=== PATIENT | male | born 1965 | race Caucasian/White ===

== ENCOUNTER 2017-03-03 14:45 | Emergency (ER) | payer OTHER ==
[2017-03-03 15:36] LABS: HEMOGLOBIN 15.6 gm/dl (14.0-17.5); RED BLOOD COUNT 5.4 M/UL (4.20-5.50); WHITE BLOOD COUNT 10.1 K/UL (4.5-11.0)
[2017-03-03 16:00] LABS: BUN/CREATININE RATIO 16 (0-10)
== END 2017-03-03 17:20 | disposition home or self-care (01) ==
LOC: ER1 14:45
PROVIDERS: Emergency Medicine
DX: R55 Syncope and collapse (principal)
CPT/HCPCS: 36415; 71010; 80053; 82550; 82553; 82962; 83874; 84484; 85025; 85610; 85730; 93005; 96374; 99284; J2405